=== PATIENT | male | born 1980 | race Caucasian/White ===

== ENCOUNTER 2021-04-28 20:24 | Inpatient (IN) | payer OTHER ==
[~2021-04-28] VITALS: Ht 160 cm; Wt 72.1 kg
[~2021-04-28 20:24] MED LIST: NORCO5 PO; TORADOL 10 MG T10 MG PO; ZOFRAN ODT4 MG PO
[2021-04-28 20:31] VITALS: BP 114/83
[2021-04-28] MEDS ORDERED: AZITHROMYCIN500 MG PO (20:35)
[2021-04-28] MEDS ORDERED: PREDNISONE 20 M20 MG PO (20:35)
[2021-04-28 21:50] LABS: HEMATOCRIT 46.7 % (42.0-52.0); MCH 30.1 pg (26.0-34.0); MCHC 34.3 g/dL (28.0-37.0); MCV 87.8 fL (80.0-100.0); MPV 6.9 fl. (7.2-11.1); RBC 5.32 mil/uL (4.50-6.00); RDW-CV 12.3 % (10.5-14.5); WBC 5.4 thou/uL (4.0-11.0)
[2021-04-28 22:00] LABS: CALCIUM 8.1 mg/dL (8.5-10.1); POTASSIUM 3.7 mmol/L (3.5-5.1)
[2021-04-28 22:05] LABS: ALBUMIN 3.3 g/dL (3.4-5.0); TOTAL BILIRUBIN 0.8 mg/dL (<0.1-1.0); TOTAL PROTEIN 7.6 g/dL (6.4-8.2)
[2021-04-28 22:25] LABS: BE 2.2 mmol/L (-2 to +3); PCO2 34.1 mmHg (35.0-45.0); pH 7.484 (7.340-7.450)
[2021-04-28 22:28] LABS: PO2 56.3 mmHg (75.0-100.0)
[2021-04-29] VITALS (7 sets, daily range): BP systolic 93–115; BP diastolic 63–80
--- NOTE | 2021-04-29 10:07 | EKG ---
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: MR : 1980 Requested By: Zaynab Goldsmith Order Number: [id number] MD: Rj Mckeon Measurements Intervals Drums Rate: 93 P: 19 ID: [id number] QRS: -10 QRSD: 96 T: 27 QT: 333 QTc: 415 Interpretive Statements Sinus rhythm ST elev, probable normal early repol pattern Baseline wander in lead(s) V4,V5,V6 No previous ECG available for comparison Electronically Signed On 04-29-2021 10:07:16 CDT by Rj Mckeon [email or web address] <ELECTRONICALLY SIGNED> By: Rj Mckeon MD, [facility] 04/29/21 1007 [id number] 42 Rj Mckeon MD, [facility] /EPI
--- NOTE | 2021-04-29 19:30 | NUR ---
Pt admitted this afternoon from ED. O2 at 2L per NC. States his gave to their 3rd child today. VSS. No complaints. Will continue to monitor.
[2021-04-30] VITALS: BP 110/73
[2021-04-30 04:00] VITALS: BP 118/71
--- NOTE | 2021-04-30 05:40 | NUR ---
PT SLEPT MOST OF SHIFT. ASSESSMENT DOCUMENTED. MEDS GIVEN PER E-MAR. IV PATENT. NO REPORTS OF PAIN. PT ON 2L NC THIS SHIFT. BREATHING TX CHANGED TO MDI. PT ABLE TO MAKE NEEDS KNOWN. WILL CONTINUE WITH PLAN OF CARE.
[2021-04-30 06:07] LABS: HEMATOCRIT 42.3 % (42.0-52.0); HEMOGLOBIN 14.7 gm/dL (14.0-18.0); MCH 30.6 pg (26.0-34.0); MCHC 34.7 g/dL (28.0-37.0); MCV 88.1 fL (80.0-100.0); MPV 6.6 fl. (7.2-11.1); RBC 4.8 mil/uL (4.50-6.00); RDW-CV 12.4 % (10.5-14.5); WBC 9.2 thou/uL (4.0-11.0)
[2021-04-30 06:12] LABS: CALCIUM 8.3 mg/dL (8.5-10.1); CREATININE 0.8 mg/dL (0.6-1.3); POTASSIUM 4.2 mmol/L (3.5-5.1)
[2021-04-30 08:00] VITALS: BP 111/74
[2021-04-30 12:00] VITALS: BP 114/76
[2021-04-30 12:51] VITALS: BP 111/74
--- NOTE | 2021-04-30 14:06 | NUR ---
Pt is A&O. Resides at home with and family. Independent. No DME. No hx of HH or SNF. Goal is home at dc. Pt may dc today. Pt is patient pay, per [facility], Pt is over income. Covid positive. Ex ox completed, Pt needs 1L at rest, 5L with activity.
== END 2021-04-30 16:50 | disposition home or self-care (01) | DRG 177 ==
LOC: M.ERS 20:24 → M.TBA-ER 22:36 → M.ORTHSURG 04-29 12:16
PROVIDERS: Family Medicine; Personal Emergency Response Attendant; ADMIT Internal Medicine; ATTEND Internal Medicine
DX: U07.1 COVID-19 (principal); J12.82 Pneumonia due to coronavirus disease 2019; J96.01 Acute respiratory failure with hypoxia; E87.1 Hypo-osmolality and hyponatremia; R73.9 Hyperglycemia, unspecified; Z79.899 Other long term (current) drug therapy